=== PATIENT | male | born 1995 ===

== ENCOUNTER 2016-06-03 16:51 | Emergency (ER) | payer OTHER ==
[2016-06-03 18:56] VITALS: BP 142/62
--- NOTE | 2016-06-03 19:14 | UC ---
Skin Complaint HPI - HPI Summary HPI Summary: Painful lump at the top of gluteal cleft starting 2-3 days ago. No hx of same sx , no fevers or drainage. - History of Current Complaint Chief Complaint: UCSkin Time Seen by Provider: 06/03/16 18:59 Stated Complaint: LOWER BACK PAIN Hx Obtained From: Patient Onset/Duration: Gradual Onset, Lasting Days Timing: Constant Onset Severity: Mild Current Severity: Mild Location: Discrete Character: Pain, Redness, Raised Aggravating: Touch Alleviating: Nothing Associated Signs & Symptoms: Positive: Tenderness - Allergy/Home Medications Allergies/Adverse Reactions: Allergies Allergy/AdvReac Type Severity Reaction Status Date / Time No Known Allergies Allergy Verified 06/03/16 18:56 Home Medications: Home Medications Ibuprofen TAB* [Advil TAB*] 400 mg PO Q6H PRN 06/03/16 [History Confirmed ] Review of Systems Constitutional: Negative Skin: Other - painful lump Eyes: Negative ENT: Negative Respiratory: Negative Cardiovascular: Negative Gastrointestinal: Negative Genitourinary: Negative Motor: Negative Neurovascular: Negative Musculoskeletal: Negative Neurological: Negative Psychological: Negative All Other Systems Reviewed And Are Negative: Yes PMH/Surg Hx/FS Hx/Imm Hx Respiratory History Of: Reports: Asthma - Surgical History Surgical History: None - Family History Known Family History: Negative: Blood Disorder - Social History Occupation: Student Lives: Alone Alcohol Use: Weekly Substance Use Type: None Smoking Status (MU): Never Smoked Tobacco Physical Exam Triage Information Reviewed: Yes Appearance: Well-Appearing, No Pain Distress, Well-Nourished Vital Signs: Initial Vital Signs Temp 99.4 F 06/03/16 18:52 Pulse 84 06/03/16 18:52 Resp 16 06/03/16 18:52 BP 142/62 06/03/16 18:52 Pulse Ox 98 06/03/16 18:52 Vital Signs Reviewed: Yes Eye Exam: Normal Eyes: Positive: Conjunctiva Clear ENT Exam: Normal ENT: Positive: Normal ENT inspection, Hearing grossly normal, Pharynx normal, TMs normal Dental Exam: Normal Neck exam: Normal Neck: Positive: Supple, Nontender, No Lymphadenopathy Respiratory Exam: Normal Respiratory: Positive: Chest non-tender, Lungs clear, Normal breath sounds, No respiratory distress, No accessory muscle use Cardiovascular Exam: Normal Cardiovascular: Positive: RRR, No Murmur Musculoskeletal Exam: Normal Neurological Exam: Normal Psychological Exam: Normal Skin Exam: Other - 2cm x 3cm nodule at vaishali cleft, minimal redness, no fluctuance or pointing. Course/Dx - Diagnoses Provider Diagnoses: pilonidal abscess Discharge - Discharge Plan Condition: Stable Disposition: HOME Prescriptions: Sulfamethox/Trimethoprim DS* [Bactrim DS 800/160 TAB*] 1 tab PO BID #14 tab Patient Education Materials: Pilonidal Cyst (GEN) Additional Instructions: Apply warm compresses or heat packs for 20-30 minutes at a time 4-5 times per day. If your symptoms persist after 1 week, get seen again. You should return here or see your primary care provider at any time if you have significant worsening or spreading of your pain/swelling/redness.
== END 2016-06-03 19:25 | disposition home or self-care (01) ==
LOC: UCCORT 16:51
DX: L05.01 Pilonidal cyst with abscess (principal)
CPT/HCPCS: 99202; G0463

== ENCOUNTER 2018-06-10 13:27 | Emergency (ER) | payer OTHER ==
[2018-06-10 13:47] VITALS: BP 154/82
--- NOTE | 2018-06-10 13:50 | UC ---
Abdominal Pain Male HPI - HPI Summary HPI Summary: Comes today for evaluation of RUQ pain off and on for the past 4 to 5 weeks, usually increases at night, can be bad enough to make him curl up. Normal appetite, no apparent association to intake. Drinks some alcohol but says not to excess, and does not associate the pain with dietary indiscretion or intake of alcohol. No nausea or vomiting. No meds taken. Stools are normal. At intake has noted tachycardia and low oxygen saturation, with note made that he has some throat congestion and upper chest tightness. Has used albuterol within the past hour. Has never used an inhaled steroid, negative hx of pneumonia, no admissions for asthma. Hx of allergies, usually uses an antihistamine in the spring. No recent travel or exposures. - History of Current Complaint Stated Complaint: ABDOMINAL PAIN Time Seen by Provider: 06/10/18 13:43 Hx Obtained From: Patient Onset/Duration: Gradual Onset, Lasting Weeks - 5 Timing: Intermittent Episodes Lasting: - hours Severity Initially: Moderate Severity Currently: Moderate Location: Discrete At: RUQ - some movement to epigastrium off and on Radiates: No Character: Colicy, Sharp Aggravating Factor(s): Movement Alleviating Factor(s): Rest Associated Signs And Symptoms: Positive: Cough - Risk Factors Testicular Torsion: Negative Cardiac Risk Factors: Negative - blood pressure elevated today - Allergies/Home Medications Allergies/Adverse Reactions: Allergies Allergy/AdvReac Type Severity Reaction Status Date / Time peanut Allergy Anaphylatic Verified 06/10/18 13:41 Shock Home Medications: Home Medications Albuterol HFA INHALER* [Ventolin HFA Inhaler*] 1 - 2 puff INH Q4H PRN 06/10/18 [ History Confirmed 06/10/18] PMH/Surg Hx/FS Hx/Imm Hx Respiratory History: Asthma - Surgical History Surgical History: None - Family History Known Family History: Positive: Other - no family hx of liver or early gallbladder disease Negative: Blood Disorder - Social History Occupation: Student Alcohol Use: Weekly Substance Use Type: None Smoking Status (MU): Never Smoked Tobacco Review of Systems All Other Systems Reviewed And Are Negative: Yes Constitutional: Positive: Fatigue, Other - usually good level of fitness, works out. Skin: Positive: Negative Eyes: Positive: Negative ENT: Positive: Negative Respiratory: Positive: Shortness Of Breath, Cough Cardiovascular: Positive: Negative Gastrointestinal: Positive: Other - RUQ pain Genitourinary: Positive: Negative Motor: Positive: Negative Neurovascular: Positive: Negative Musculoskeletal: Positive: Negative Neurological: Positive: Negative Psychological: Positive: Negative Is Patient Immunocompromised?: No Physical Exam Appearance: No Pain Distress, Ill-Appearing - looks fatigued, no jaundice Eyes: Positive: Conjunctiva Clear ENT: Positive: Pharynx normal Neck: Positive: Supple, Nontender, No Lymphadenopathy Respiratory: Positive: No accessory muscle use, Decreased breath sounds, Wheezing - prolonged expiration with late expiratory wheeze. Cardiovascular: Positive: RRR, No Murmur Abdomen Description: Positive: No Organomegaly, Soft, Other: - + Crenshaw's sign with voluntary guarding. Liver span normal by percussion. Negative: CVA Tenderness (R), CVA Tenderness (L), Distended, Peritoneal Signs, Splenomegaly Musculoskeletal Exam: Normal Neurological Exam: Normal Psychological Exam: Normal Skin Exam: Normal Abd Pain Male Course/Dx - Course Course Of Treatment: improve asthma control with addition of steroid, antihistamine. Omeprazole for epigastric pain. Labs to assess LFT's and pancreas, follow up with [facility] - Differential Dx/Clinical Impression Differential Diagnosis/HQI/PQRI: Constipation, Gall Bladder Disease, Peptic Ulcer Disease Provider Diagnosis: Gastritis, Asthma attack Discharge - Sign-Out/Discharge Documenting (check all that apply): Patient Departure All imaging exams completed and their final reports reviewed: No Studies - Discharge Plan Condition: Stable Disposition: HOME Prescriptions: Fluticasone HFA 110 mcg(NF) [Flovent HFA 110 mcg(NF)] 2 puff INH BID #1 mdi Omeprazole 20 mg PO DAILY #30 tab Patient Education Materials: Gastritis (ED), Asthma (ED) Referrals: No Primary Care Phys,NOPCP [Primary Care Provider] - Additional Instructions: Labs have been done to assess liver and pancreatic function, and a blood count. Results will be available tomorrow. You will be called if abnormal. Omeprazole should be taken on an empty stomach, about 20 to 30 minutes before eating. This will help with stomach acid, which might be involved in some of the pain in the mid abdomen. I suggest a follow up with your health care center to consider arranging an ultrasound scan of the gallbladder and liver. Add flovent steroid inhaler to improve asthma control. Rinse your mouth after using to prevent thrush and a sore tongue. Add an antihistamine in case there is an allergic component to this. Use albuterol as needed for control of wheeze and cough. Limit alcohol use. If you have a sudden increase in abdominal pain and/or vomiting and fever, please go to the emergency room for evaluation. - Billing Disposition and Condition Condition: STABLE Disposition: Home
[2018-06-10] MEDS ORDERED: Levalbuterol 0.63MG/3ML NEB* UNIT OF USE INH ONE (14:00)
[2018-06-11 10:36] LABS: Hematocrit 47 % (42-52); Hemoglobin 15.3 g/dl (14.0-18.0); Mean Corpuscular HGB Conc 33 g/dl (31-36); Mean Corpuscular Hemoglobin 30 pg (27-31); Mean Corpuscular Volume 91 fL (80-94); Mean Platelet Volume 11.5 fL (7.4-10.4); Platelet Count 191 10^3/ul (150-450); Red Blood Count 5.13 10^6/ul (4.00-5.40); Red Cell Distribution Width 14 % (10.5-15); White Blood Count 7.3 10^3/ul (3.5-10.8)
[2018-06-11 10:47] LABS: Albumin 4.5 g/dL (3.2-5.2); Albumin/Globulin Ratio 1.8 (1-3); BUN/Creatinine Ratio 15.5 (8-20); CRP High Sensitivity 26.03 mg/L (<2.00); Calcium 9.7 mg/dL (8.6-10.3); EGFR African American 118.2 (>60); EGFR Non-African American 97.7 (>60); Globulin 2.5 g/dL (2-4); Potassium 4.1 mmol/L (3.5-5.0); Total Bilirubin 0.3 mg/dL (0.2-1.0)
[2018-06-11 10:58] LABS: ABS Basophils 0.1 10^3/ul (0-0.2); ABS Eosinophils 0.4 10^3/ul (0-0.6); ABS Lymphocytes 0.9 10^3/ul (1.0-4.8)
[2018-06-11 11:02] LABS: ABS Basophils 0 10^3/ul (0-0.2); ABS Eosinophils 0.4 10^3/ul (0-0.6); ABS Neutrophils 5.3 10^3/ul (1.5-7.7); Lymphocytes % 11 %; Monocytes % 12 %; Neutrophil % 72 %
--- NOTE | 2018-06-12 07:36 | UC ---
- Progress Note Progress Note: Lab work from June 10, 2018 comes back. Patient was in with epigastric and right upper quadrant pain on that date. Overall white blood cell count hemoglobin are normal platelets are normal. ALT was elevated at 182 AST elevated at 67. CRP was elevated 26. Glucose was slightly elevated at 110. In the chart department plan was to follow-up with [facility] and consider right upper quadrant, but ultrasound. Nursing to call patient to inform him of the lab work and that he should follow- up with [facility] and consider the gallbladder ultrasound. Also if he is feeling worse as fevers the pain is worse he needs to get reevaluated sooner. Course/Dx - Diagnoses Provider Diagnoses: Gastritis, Asthma attack Discharge - Sign-Out/Discharge Documenting (check all that apply): Patient Departure All imaging exams completed and their final reports reviewed: No Studies - Discharge Plan Condition: Stable Disposition: HOME Prescriptions: Fluticasone HFA 110 mcg(NF) [Flovent HFA 110 mcg(NF)] 2 puff INH BID #1 mdi Omeprazole 20 mg PO DAILY #30 tab. Patient Education Materials: Asthma (ED), Gastritis (ED) Referrals: No Primary Care Phys,NOPCP [Primary Care Provider] - Additional Instructions: Labs have been done to assess liver and pancreatic function, and a blood count. Results will be available tomorrow. You will be called if abnormal. Omeprazole should be taken on an empty stomach, about 20 to 30 minutes before eating. This will help with stomach acid, which might be involved in some of the pain in the mid abdomen. I suggest a follow up with your health care center to consider arranging an ultrasound scan of the gallbladder and liver. Add flovent steroid inhaler to improve asthma control. Rinse your mouth after using to prevent thrush and a sore tongue. Add an antihistamine in case there is an allergic component to this. Use albuterol as needed for control of wheeze and cough. Limit alcohol use. If you have a sudden increase in abdominal pain and/or vomiting and fever, please go to the emergency room for evaluation. - Billing Disposition and Condition Condition: STABLE Disposition: Home
== END 2018-06-10 14:56 | disposition home or self-care (01) ==
LOC: UCCORT 13:27
DX: K29.70 Gastritis, unspecified, without bleeding (principal); J45.909 Unspecified asthma, uncomplicated; Z91.010 Allergy to peanuts; Z79.899 Other long term (current) drug therapy
CPT/HCPCS: 36415; 80053; 82150; 83690; 85025; 85060; 86141; 99212; G0463